=== PATIENT | female | born 1980 | race Hispanic/Latino ===

== ENCOUNTER 2018-10-06 05:30 | Observation (INO) | payer BC ==
[2018-10-05 16:00] VITALS: BP 126/66
[2018-10-05 16:16] LABS: BASOPHILS % (AUTO) 0.7 % (0.0-5.0); EOSINOPHILS % (AUTO) 1.1 % (0.0-8.0); HEMATOCRIT 42.8 % (36-48); LYMPHOCYTES % (AUTO) 27.8 % (21.0-51.0); MEAN CORPUSCULAR HEMOGLOBIN 30.4 pg (27.0-33.0); MEAN CORPUSCULAR HGB CONC 33.4 g/dL (32.0-36.0); MEAN CORPUSCULAR VOLUME 90.9 fL (79-99); NEUTROPHILS % (AUTO) 63.4 % (40.0-77.0); PLATELET COUNT (AUTO) 307 K/uL (130-400); WHITE BLOOD COUNT (AUTO) 10.3 K/uL (4.8-10.8)
[2018-10-06] VITALS (18 sets, daily range): BP systolic 106–140; BP diastolic 52–90
[~2018-10-06] VITALS: Ht 152.4 cm; Wt 80.0 kg
[~2018-10-06 05:30] MED LIST: LORA10TA60 PO
[2018-10-06] MEDS ORDERED: LACTATED RINGERS 1000ML 1,000 ML IV ONE (05:48)
[2018-10-06] MEDS: CEFAZOLIN SODIUM 1 GM VIAL ONE ×2 (06:27→07:10)
[2018-10-06] MEDS ORDERED: PROPOFOL 10 MG/ML 20ML VIAL IV ONE (06:56)
[2018-10-06] MEDS ORDERED: FENTANYL CITRATE PF 50 MCG/1 ML 5ML AMP IV ONE (06:57)
[2018-10-06] MEDS ORDERED: MIDAZOLAM HCL 1 MG/ML 2ML VIAL ONE (06:57)
[2018-10-06] MEDS ORDERED: ROCURONIUM 10MG/1ML SYR 10 MG/ML ML ONE (06:59)
[2018-10-06] MEDS ORDERED: NEOSTIGMINE 5MG/5ML SYR IV ONE (07:48)
[2018-10-06] MEDS ORDERED: GLYCOPYRROLATE 1 MG/5 ML SYRINGE ONE (07:48)
[2018-10-06] MEDS ORDERED: ONDANSETRON HCL 4 MG/2 ML VIAL ONE (07:48)
[2018-10-06] MEDS ORDERED: MEPERIDINE-PF 25 MG/ML SYG ONE (08:55)
[2018-10-06] MEDS ORDERED: PROMETHAZINE HCL 25 MG/ML 1ML AMPULE IM PRN ×2 (10:00)
[2018-10-06] MEDS ORDERED: BISACODYL 10 MG SUPP.RECT RC PRN (10:00)
[2018-10-06] MEDS ORDERED: ONDANSETRON HCL 4 MG/2 ML VIAL IVP PRN (10:00)
[2018-10-06] MEDS ORDERED: ACETAMINOPHEN-CODEINE 300/30MG TAB PO PRN (10:00)
[2018-10-06] MEDS ORDERED: MEPERIDINE-PF 75 MG/ML SYG IM PRN (10:00)
[2018-10-06] MEDS: DEXTROSE 5 %-0.45 % NACL 1,000 ML IV PRN ×2 (10:45→18:15)
[2018-10-06] MEDS: IBUPROFEN 600 MG TABLET PO PRN (18:19)
[2018-10-06] MEDS: DOCUSATE SODIUM 100 MG CAP PO PRN (21:53)
[2018-10-06] MEDS: SIMETHICONE 80 MG TAB.CHEW PO PRN (21:54)
[2018-10-07] MEDS: DEXTROSE 5 %-0.45 % NACL 1,000 ML IV PRN (01:52)
[2018-10-07] MEDS: IBUPROFEN 600 MG TABLET PO PRN ×2 (03:40→09:14)
[2018-10-07 03:49] VITALS: BP 120/66
[2018-10-07 05:29] LABS: HEMATOCRIT 39.8 % (36-48); MEAN CORPUSCULAR HGB CONC 32.8 g/dL (32.0-36.0); MEAN CORPUSCULAR VOLUME 91.4 fL (79-99); NUCLEATED RED BLOOD CELLS 0.1 % (0.0-0.19); PLATELET COUNT (AUTO) 279 K/uL (130-400); RED BLOOD CELL COUNT(AUTO) 4.36 MIL/uL (4.00-5.50); RED CELL DISTRIBUTION WIDTH 12.9 % (11.0-15.5); WHITE BLOOD COUNT (AUTO) 13.8 K/uL (4.8-10.8)
[2018-10-07 07:55] VITALS: BP 112/70
[2018-10-07] MEDS: SIMETHICONE 80 MG TAB.CHEW PO PRN (09:14)
[2018-10-07] MEDS: DOCUSATE SODIUM 100 MG CAP PO PRN (09:14)
--- NOTE | 2018-10-07 10:03 | NUR ---
ROZINA Gastelum met with pt who lives with her [id number]. Pt works, is independent, no DME or HH. Sees Dr Hoskins, has rx coverage. Denies dc needs, Plan is home at dc Addendum: 10/07/18 at 1004 by DIANE DUKE SS Amended: Links added.
[2018-10-07 11:32] VITALS: BP 111/81
--- NOTE | 2018-10-07 12:50 | NUR ---
DISCHARGE PATIENT LEFT UNIT VIA WHEELCHAIR WITH BELONGINGS IN HAND. PERSONAL VEHICLE USED FOR TRANSPORTATION,ACCOMPANIED BY . NO COMPLAINTS OR CONCERNS ADDRESSED FROM PATIENT ON DISCHARGE.
== END 2018-10-07 12:15 | disposition home or self-care (01) ==
LOC: DAH 05:30 → WSH 05:31
PROVIDERS: ADMIT Obstetrics & Gynecology; ATTEND Obstetrics & Gynecology
DX: D25.9 Leiomyoma of uterus, unspecified (principal); G89.29 Other chronic pain; R10.2 Pelvic and perineal pain; K46.9 Unspecified abdominal hernia without obstruction or gangrene; Z82.49 Family history of ischemic heart disease and other diseases of the circulatory system; Z88.5 Allergy status to narcotic agent; Z98.51 Tubal ligation status; Z90.49 Acquired absence of other specified parts of digestive tract
CPT/HCPCS: 36415 ×2; 58262; 85025; 85027; 86850; 86900; 86901; 88305; 88307; 96372; 96374; A4218; A4351; A4510; A4600; A4606; G0378 ×31; J0690; J2175 ×2; J2250; J2405 ×2; J2550; J2704; J2710; J3010; J3490; J7120

== ENCOUNTER 2023-01-23 06:24 | Day surgery (SDC) | payer BC ==
[2023-01-21 14:40] LABS: BASOPHILS % (AUTO) 0.5 % (0.0-5.0); EOSINOPHILS % (AUTO) 1.1 % (0.0-8.0); HEMATOCRIT 42.8 % (36-48); LYMPHOCYTES % (AUTO) 32.1 % (21.0-51.0); MEAN CORPUSCULAR HGB CONC 33.6 g/dL (32.0-36.0); MONOCYTES % (AUTO) 7.2 % (3.0-13.0); NEUTROPHILS % (AUTO) 58.8 % (40.0-77.0); PLATELET COUNT (AUTO) 293 K/uL (130-400); RED BLOOD CELL COUNT(AUTO) 4.65 MIL/uL (4.00-5.50); RED CELL DISTRIBUTION WIDTH 12.5 % (11.0-15.5); WHITE BLOOD COUNT (AUTO) 9.3 K/uL (4.8-10.8)
[2023-01-21 14:50] LABS: INR 0.95 (0.85-1.15); PROTHROMBIN TIME 10.4 SEC (9.6-11.6)
[2023-01-21 14:51] LABS: PARTIAL THROMBOPLASTIN TIME 28.9 SEC (26.3-35.5)
[2023-01-21 14:57] LABS: CREATININE 0.8 mg/dL (0.5-1.5)
[2023-01-21 15:16] VITALS: BP 138/72
[2023-01-23] VITALS (9 sets, daily range): BP systolic 114–142; BP diastolic 68–83
[~2023-01-23] VITALS: Ht 152.4 cm; Wt 84.4 kg
[~2023-01-23 06:24] MED LIST changes: -LORA10TA60 PO; +MVIT PO; +VERA180T61 PO; +VITA1CAP85 PO
[2023-01-23] MEDS ORDERED: 0.9%NACL 1000ML 1,000 ML IV ONE (07:54)
[2023-01-23] MEDS ORDERED: MIDAZOLAM HCL 1 MG/ML 2ML VIAL ONE (11:15)
[2023-01-23] MEDS ORDERED: MEPERIDINE-PF 25 MG/ML SYG ONE ×2 (11:15→13:16)
[2023-01-23] MEDS ORDERED: HEPARIN 10,000 UNIT/10ML (1,000 UNIT/ML) VIAL ONE (11:16)
[2023-01-23] MEDS ORDERED: MEPERIDINE-PF 50 MG/ML SYG ONE (11:16)
[2023-01-23] MEDS ORDERED: LIDOCAINE HCL 400MG/20ML VIAL ONE (11:40)
[2023-01-23] MEDS ORDERED: ISOPROTERENOL HCL 0.2 MG/ML AMP/VIAL/BAG ONE (13:58)
[2023-01-23] MEDS ORDERED: ONDANSETRON 4MG INJ ONE (14:22)
== END 2023-01-23 19:10 | disposition home or self-care (01) ==
LOC: DAH 06:24
PROVIDERS: ATTEND Internal Medicine Cardiovascular Disease
DX: I49.3 Ventricular premature depolarization (principal); R06.81 Apnea, not elsewhere classified; G43.909 Migraine, unspecified, not intractable, without status migrainosus; Z90.710 Acquired absence of both cervix and uterus; Z90.49 Acquired absence of other specified parts of digestive tract; Z98.890 Other specified postprocedural states; Z88.8 Allergy status to other drugs, medicaments and biological substances; Z79.01 Long term (current) use of anticoagulants; Z86.73 Personal history of transient ischemic attack (TIA), and cerebral infarction without residual deficits
CPT/HCPCS: 80048; 84703; 85025; 85610; 85730; 36415; 93005; 93654; 93623; C1894 ×3; C1893; A4649 ×2; C1732; C1730; J3490 ×2; J7030; J1644 ×2; J2250; J2405; J2175 ×2; A4215; A4222; A4221; A4663; A4216; A4606; A4223 ×3; 99156; 99157

== ENCOUNTER → 2023-07-24 | Outpatient (CLI) | payer OTHER ==
[~2023-07-24] MED LIST changes: -VERA180T61 PO
== END | disposition home or self-care (01) ==
LOC: RAH 13:21
PROVIDERS: ATTEND Internal Medicine Cardiovascular Disease
DX: Z13.6 Encounter for screening for cardiovascular disorders (principal); R07.9 Chest pain, unspecified
CPT/HCPCS: 75571